=== PATIENT | female | born 1955 | race Caucasian/White ===

== ENCOUNTER 2017-03-31 10:14 | Inpatient (IN) | payer OTHER ==
[~2017-03-31] VITALS: Ht 157.5 cm; Wt 68.0 kg
[2017-03-31 10:24] VITALS: BP 125/68
[2017-03-31] MEDS ORDERED: Norco 5mg/325mg tab PO ONE (10:30)
--- NOTE | 2017-03-31 11:11 | Diagnostic Imaging Report ---
Indication: pain Findings: Single AP view of the pelvis was performed. No acute fracture is identified. Bone mineralization is within normal limits. Bilateral hips and sacroiliac joints appear symmetric.There is no malalignment. Soft tissues are unremarkable.
[2017-03-31] MEDS ORDERED: Morphine Sulfate 2mg/ml Inj IVP ONE (12:45)
[2017-03-31 13:00] VITALS: BP 135/63
[2017-03-31 13:16] LABS: MEAN CORPUSCULAR HEMOGLOBIN 26.2 PG (27.0-31.0); MEAN CORPUSCULAR HGB CONC 32.1 G/DL (32.0-36.0); MEAN CORPUSCULAR VOLUME 82 FL (80-99); MEAN PLATELET VOLUME 7.1 FL (6.5-10.1); PLATELET COUNT 231 K/UL (150-450); RED BLOOD COUNT 4.28 M/UL (4.20-5.40); RED CELL DISTRIBUTION WIDTH 13.8 % (11.6-14.8); WHITE BLOOD COUNT 11.3 K/UL (4.8-10.8)
[2017-03-31 13:18] LABS: APPEARANCE,URINE CLEAR; KETONES,URINE NEGATIVE (NEGATIVE); LEUKOCYTE ESTERASE ,URINE NEGATIVE (NEGATIVE); NITRITE,URINE NEGATIVE (NEGATIVE); PH,URINE 8 (4.5-8.0); PROTEIN,URINE NEGATIVE (NEGATIVE); UROBILINOGEN,URINE NORMAL MG/DL (0.0-1.0)
[2017-03-31 13:29] LABS: PROTHROMBIN TIME 10.2 SEC (9.30-11.50)
[2017-03-31 13:38] LABS: ALANINE AMINOTRANSFERASE 24 U/L (3-33); ALBUMIN/GLOBULIN RATIO 1.3 (1.0-2.7); ANION GAP 14 (5-15); ASPARTATE AMINO TRANSFERASE 27 U/L (5-40); CALCIUM 8.9 mg/dL (8.6-10.2); CARBON DIOXIDE 27 mEQ/L (20-30); CHLORIDE 99 mEQ/L (98-107); CREATININE 0.7 mg/dL (0.5-0.9); GLOMERULAR FILTRATION RATE > 60 mL/min (>60); HEMOLYSIS 3; POTASSIUM 3.9 mEQ/L (3.4-4.9); SODIUM 140 mEQ/L (135-145); TOTAL PROTEIN 6.7 g/dL (6.6-8.7)
[2017-03-31 13:39] LABS: TROPONIN I < 0.30 ng/mL (<=0.30)
[2017-03-31 13:44] LABS: BAND NEUTROPHILS % (MANUAL) 2 % (0-8); BASOPHILS % (MANUAL) 0 % (0-2); EOSINOPHILS % (MANUAL) 0 % (0-3); HYPOCHROMASIA 1+; LYMPHOCYTES % (MANUAL) 2 % (20-45); NEUTROPHILS % (MANUAL) 92 % (45-75); PLATELET ESTIMATE ADEQUATE; PLATELET MORPHOLOGY NORMAL; TOTAL CELLS COUNTED 100
[2017-03-31] MEDS ORDERED: Mylanta II UD 30ml ORAL PRN (14:30)
[2017-03-31] MEDS ORDERED: Morphine Sulfate 2mg/ml Inj IVP PRN (14:30)
[2017-03-31] MEDS ORDERED: LORazepam Inj 2mg/ml 1ml IV PRN (14:30)
--- NOTE | 2017-03-31 14:38 | Emergency Room Report ---
History of Present Illness General Chief Complaint: Multiple Trauma/Fall Source: Patient Present Illness HPI Patient fell off a chair while at work putting away cleaning supplies. She fell onto her right side and also hit her head. There is no loss of consciousness. The pain was so severe that she is unable to ambulate. The pain is medial upper thigh area. She does not take any medication before coming to the hospital. Brought by EMS. Pain is medial thigh R radiating from pelvis to leg/knee. Pain 6/10, constant, but worsened when tries to stand. No saddle numbness, incontinence, chest pain, NVD, dysuria, fevers. No bleeding disorders or oncologic problems. Tried to ambulate at scene and unable. H/O HTN. Allergies: Coded Allergies: No Known Allergies (Unverified , 03/31/17) Patient History Past Medical History: see triage record Social History: Denies: smoking Social History Narrative works at [employer] Reviewed Nursing Documentation: PMH: Agreed, PSxH: Agreed Nursing Documentation-PMH Past Medical History: No History, Except For Hx Hypertension: Yes Review of Systems All Other Systems: negative except mentioned in HPI Physical Exam Vital Signs Date Time Temp Pulse Resp B/P Pulse Ox O2 Delivery O2 Flow Rate FiO2 03/31/17 10:09 97.3 80 16 125/75 100 Room Air Sp02 EP Interpretation: reviewed, normal General Appearance: well appearing, no apparent distress, GCS 15 Head: normocephalic, other - tender occiput Eyes: bilateral eye EOMI, bilateral eye PERRL, bilateral eye normal inspection ENT: moist mucus membranes Neck: full range of motion, supple, no bony tend Respiratory: chest non-tender, lungs clear, normal breath sounds Cardiovascular #1: regular rate, rhythm Cardiovascular #2: 2+ radial (R) Gastrointestinal: normal inspection, normal bowel sounds, non tender, no mass, non-distended Musculoskeletal: back normal, digits/nails normal, pelvis stable, tender - medial thigh and ischial area, knee ligaments stable, ankle not tender or swollen Neurologic: alert, oriented x3, 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 as tested, motor strength/tone normal, DTRs symmetric, sensory intact, cerebellar normal, speech normal Psychiatric: mood/affect normal Skin: normal inspection, warm/dry Medical Decision Making Diagnostic Impression: Primary Impression: Fall Qualified Codes: W19.XXXA - Unspecified fall, initial encounter Additional Impressions: Unable to ambulate Head injury Qualified Codes: S09.90XA - Unspecified injury of head, initial encounter Strain of right hip and thigh Qualified Codes: S76.011A - Strain of muscle, fascia and tendon of right hip, initial encounter; S76.911A - Strain of unspecified muscles, fascia and tendons at thigh level, right thigh, initial encounter ER Course Patient fell from chair and has head and R sided leg pain. Ddx: concussion, fracture, contusions, strain. Xrays and analgesia indicated. Xrays without fractures. Improved but still with pain. CT normal. Patient is unable to ambulate due to severe pain in her upper thigh. We'll admit her to the hospital for observation. Need labs to exclude other co- morbidities. Parenteral analgesia with some improvement. Labs unremarkable. Admit med Dr. [place]. Laboratory Tests Test 03/31/17 13:00 White Blood Count 11.3 K/UL (4.8-10.8) H Red Blood Count 4.28 M/UL (4.20-5.40) Hemoglobin 11.2 G/DL (12.0-16.0) L Hematocrit 34.9 % (37.0-47.0) L Mean Corpuscular Volume 82 FL (80-99) Mean Corpuscular Hemoglobin 26.2 PG (27.0-31.0) L Mean Corpuscular Hemoglobin Concent 32.1 G/DL (32.0-36.0) Red Cell Distribution Width 13.8 % (11.6-14.8) Platelet Count 231 K/UL (150-450) Mean Platelet Volume 7.1 FL (6.5-10.1) Neutrophils (%) (Auto) % (45.0-75.0) Lymphocytes (%) (Auto) % (20.0-45.0) Monocytes (%) (Auto) % (1.0-10.0) Eosinophils (%) (Auto) % (0.0-3.0) Basophils (%) (Auto) % (0.0-2.0) Differential Total Cells Counted 100 Neutrophils % (Manual) 92 % (45-75) H Lymphocytes % (Manual) 2 % (20-45) L Monocytes % (Manual) 4 % (1-10) Eosinophils % (Manual) 0 % (0-3) Basophils % (Manual) 0 % (0-2) Band Neutrophils 2 % (0-8) Platelet Estimate Adequate Platelet Morphology Normal Hypochromasia 1+ Prothrombin Time 10.2 SEC (9.30-11.50) Prothrombin Time INR 1.0 (0.9-1.1) PTT 22 SEC (23-33) L Urine Color Pale yellow Urine Appearance Clear Urine pH 8 (4.5-8.0) Urine Specific [place] 1.010 (1.005-1.035) Urine Protein Negative (NEGATIVE) Urine Glucose (UA) Negative (NEGATIVE) Urine Ketones Negative (NEGATIVE) Urine Occult Blood Negative (NEGATIVE) Urine Nitrite Negative (NEGATIVE) Urine Bilirubin Negative (NEGATIVE) Urine Urobilinogen Normal MG/DL (0.0-1.0) Urine Leukocyte Esterase Negative (NEGATIVE) Sodium Level 140 mEQ/L (135-145) Potassium Level 3.9 mEQ/L (3.4-4.9) Chloride Level 99 mEQ/L (98-107) Carbon Dioxide Level 27 mEQ/L (20-30) Anion Gap 14 (5-15) Blood Urea Nitrogen 15 mg/dL (7-23) Creatinine 0.7 mg/dL (0.5-0.9) Estimate Glomerular Filtration Rate > 60 mL/min (>60) Glucose Level 110 mg/dL (74-106) H Calcium Level 8.9 mg/dL (8.6-10.2) Total Bilirubin < 0.2 mg/dL (0.0-1.2) Aspartate Amino Transferase (AST) 27 U/L (5-40) Alanine Aminotransferase (ALT) 24 U/L (3-33) Alkaline Phosphatase 81 U/L (35-104) Total Creatine Kinase 427 U/L (26-140) H Troponin I < 0.30 ng/mL (<=0.30) Pro-B-Type Natriuretic Peptide 87 pg/mL (0-125) Total Protein 6.7 g/dL (6.6-8.7) Albumin 3.8 g/dL (3.5-5.2) Globulin 2.9 g/dL Albumin/Globulin Ratio 1.3 (1.0-2.7) EKG Diagnostic Results Rate: normal Rhythm: NSR ST Segments: no acute changes Rhythm Strip Diag. Results EP Interpretation: yes Rhythm: NSR, no PVC's, no ectopy Chest X-Ray Diagnostic Results EP Interpretation: Yes Findings: no consolidation, no effusion, no pneumothorax, no acute cardiopulmonary disease Number of Views: 1 Other X-Ray Diagnostic Results Other X-Ray Diagnostic Results #1: X-Ray Ordered: pelvis EP Interpretation: Yes Findings: no fractures, no dislocation, no soft tissue swelling Number of Views: 1 Other X-Ray Diagnostic Results #2: X-Ray Ordered: R hip EP Interpretation: Yes Findings: no fractures, no dislocation, no soft tissue swelling Number of Views: 2 Other X-Ray Diagnostic Results #3: X-Ray Ordered: R knee EP Interpretation: Yes Findings: no fractures, no dislocation, no soft tissue swelling, other - djd Number of Views: 3 CT/MRI/US Diagnostic Results CT/MRI/US Diagnostic Results : Imaging Test Ordered: head Impression no bleed or fx Last Vital Signs Date Time Temp Pulse Resp B/P Pulse Ox O2 Delivery O2 Flow Rate FiO2 03/31/17 19:49 98.1 63 18 107/98 98 Room Air Status: improved Disposition: HOME, SELF-CARE Condition: Improved Referrals: NON PHYSICIAN (PCP) Hany Grant M.D. March 31, 2017 14:38
[2017-03-31] MEDS ORDERED: BYSTOLIC10 MG ORAL (14:56)
[2017-03-31 16:08] VITALS: BP 102/61
[2017-03-31 19:49] VITALS: BP 107/98
[2017-03-31] MEDS: Heparin 5000 units/ml inj SUBQ SCH (20:32)
[2017-03-31] MEDS ORDERED: Zolpidem 5mg tab ORAL PRN (21:00)
[2017-03-31] MEDS ORDERED: Miralax 17gm pkt ORAL PRN (21:00)
[2017-03-31] MEDS ORDERED: AMLODIPINE BESY10 MG ORAL (21:46)
--- NOTE | 2017-03-31 22:29 | History and Physical ---
History of Present Illness General Reason for Hospitalization: Multiple Trauma/Fall Present Illness Allergies: Coded Allergies: No Known Allergies (Unverified , 03/31/17) Medication History Scheduled Amlodipine Besylate* (Amlodipine Besylate*), 10 MG ORAL DAILY, (Reported) Nebivolol Hcl (Bystolic*), 10 MG ORAL DAILY, (Reported) Patient History Healthcare decision maker Resuscitation status Full Code Advanced Directive on File Physical Exam Last 24 Hour Vital Signs Date Time Temp Pulse Resp B/P Pulse Ox O2 Delivery O2 Flow Rate FiO2 03/31/17 20:50 98.1 03/31/17 19:49 98.1 63 18 107/98 98 Room Air 03/31/17 16:08 97.7 71 16 102/61 98 Room Air 03/31/17 15:15 72 18 104/69 98 Room Air 03/31/17 13:00 98.2 76 15 135/63 99 Room Air 03/31/17 11:30 98.0 03/31/17 11:30 98.0 03/31/17 10:24 98.0 78 17 125/68 98 Room Air 03/31/17 10:09 97.3 80 16 125/75 100 Room Air Laboratory Tests Test 03/31/17 13:00 White Blood Count 11.3 K/UL (4.8-10.8) H Red Blood Count 4.28 M/UL (4.20-5.40) Hemoglobin 11.2 G/DL (12.0-16.0) L Hematocrit 34.9 % (37.0-47.0) L Mean Corpuscular Volume 82 FL (80-99) Mean Corpuscular Hemoglobin 26.2 PG (27.0-31.0) L Mean Corpuscular Hemoglobin Concent 32.1 G/DL (32.0-36.0) Red Cell Distribution Width 13.8 % (11.6-14.8) Platelet Count 231 K/UL (150-450) Mean Platelet Volume 7.1 FL (6.5-10.1) Neutrophils (%) (Auto) % (45.0-75.0) Lymphocytes (%) (Auto) % (20.0-45.0) Monocytes (%) (Auto) % (1.0-10.0) Eosinophils (%) (Auto) % (0.0-3.0) Basophils (%) (Auto) % (0.0-2.0) Differential Total Cells Counted 100 Neutrophils % (Manual) 92 % (45-75) H Lymphocytes % (Manual) 2 % (20-45) L Monocytes % (Manual) 4 % (1-10) Eosinophils % (Manual) 0 % (0-3) Basophils % (Manual) 0 % (0-2) Band Neutrophils 2 % (0-8) Platelet Estimate Adequate Platelet Morphology Normal Hypochromasia 1+ Prothrombin Time 10.2 SEC (9.30-11.50) Prothromb Time International Ratio 1.0 (0.9-1.1) Activated Partial Thromboplast Time 22 SEC (23-33) L Urine Color Pale yellow Urine Appearance Clear Urine pH 8 (4.5-8.0) Urine Specific [place] 1.010 (1.005-1.035) Urine Protein Negative (NEGATIVE) Urine Glucose (UA) Negative (NEGATIVE) Urine Ketones Negative (NEGATIVE) Urine Occult Blood Negative (NEGATIVE) Urine Nitrite Negative (NEGATIVE) Urine Bilirubin Negative (NEGATIVE) Urine Urobilinogen Normal MG/DL (0.0-1.0) Urine Leukocyte Esterase Negative (NEGATIVE) Sodium Level 140 mEQ/L (135-145) Potassium Level 3.9 mEQ/L (3.4-4.9) Chloride Level 99 mEQ/L (98-107) Carbon Dioxide Level 27 mEQ/L (20-30) Anion Gap 14 (5-15) Blood Urea Nitrogen 15 mg/dL (7-23) Creatinine 0.7 mg/dL (0.5-0.9) Estimat Glomerular Filtration Rate > 60 mL/min (>60) Glucose Level 110 mg/dL (74-106) H Calcium Level 8.9 mg/dL (8.6-10.2) Total Bilirubin < 0.2 mg/dL (0.0-1.2) Aspartate Amino Transf (AST/SGOT) 27 U/L (5-40) Alanine Aminotransferase (ALT/SGPT) 24 U/L (3-33) Alkaline Phosphatase 81 U/L (35-104) Total Creatine Kinase 427 U/L (26-140) H Troponin I < 0.30 ng/mL (<=0.30) Pro-B-Type Natriuretic Peptide 87 pg/mL (0-125) Total Protein 6.7 g/dL (6.6-8.7) Albumin 3.8 g/dL (3.5-5.2) Globulin 2.9 g/dL Albumin/Globulin Ratio 1.3 (1.0-2.7) Height (Feet): 5 Height (Inches): 2.00 Weight (Pounds): 150 Medications Current Medications Medications (Trade) Dose Ordered Sig/Christina Route PRN Reason Start Time Stop Time Status Last Admin Dose Admin Acetaminophen (Tylenol) 650 mg Q4H PRN ORAL T>100.5 03/31/17 14:30 04/30/17 14:29 03/31/17 19:51 Al Hydroxide/Mg Hydroxide (Mylanta II) 30 ml Q6H PRN ORAL dyspepsia 03/31/17 14:30 04/30/17 14:29 Dextrose (Dextrose 50%) STAT PRN IV Hypoglycemia 03/31/17 14:30 04/30/17 14:29 Heparin Sodium (Porcine) (Heparin 5000 units/ml) 5,000 units EVERY 12 HOURS SUBQ 03/31/17 21:00 04/30/17 20:59 03/31/17 20:32 Lorazepam (Ativan 2mg/ml 1ml) 0.5 mg Q4H PRN IV For Anxiety 03/31/17 14:30 04/07/17 14:29 Morphine Sulfate (Morphine Sulfate) 1 mg Q4H PRN IVP PAIN 4-10 03/31/17 14:30 04/07/17 14:29 Ondansetron HCl (Zofran) 4 mg Q6H PRN IVP Nausea & Vomiting 03/31/17 14:30 04/30/17 14:29 Polyethylene Glycol (Miralax) 17 gm HSPRN PRN ORAL Constipation 03/31/17 21:00 04/30/17 20:59 Zolpidem Tartrate (Ambien) 5 mg HSPRN PRN ORAL Insomnia 03/31/17 21:00 04/30/17 20:59 ELIZABETH PRITCHARD March 31, 2017 22:29
[2017-03-31 23:46] VITALS: BP 114/61
[2017-04-01 04:00] VITALS: BP 104/69
[2017-04-01 06:49] LABS: BASOPHILS % (AUTO) 0.6 % (0.0-2.0); EOSINOPHILS % (AUTO) 0.6 % (0.0-3.0); LYMPHOCYTES % (AUTO) 19.4 % (20.0-45.0); MEAN CORPUSCULAR HEMOGLOBIN 26.2 PG (27.0-31.0); MEAN CORPUSCULAR HGB CONC 31.9 G/DL (32.0-36.0); MEAN CORPUSCULAR VOLUME 82 FL (80-99); MEAN PLATELET VOLUME 7.6 FL (6.5-10.1); MONOCYTES % (AUTO) 6.9 % (1.0-10.0); NEUTROPHILS % (AUTO) 72.6 % (45.0-75.0); PLATELET COUNT 207 K/UL (150-450); RED BLOOD COUNT 3.96 M/UL (4.20-5.40); RED CELL DISTRIBUTION WIDTH 14.1 % (11.6-14.8); WHITE BLOOD COUNT 6.5 K/UL (4.8-10.8)
[2017-04-01 07:20] LABS: ALANINE AMINOTRANSFERASE 22 U/L (3-33); ALBUMIN/GLOBULIN RATIO 1.3 (1.0-2.7); ANION GAP 11 (5-15); ASPARTATE AMINO TRANSFERASE 24 U/L (5-40); CALCIUM 9.3 mg/dL (8.6-10.2); CARBON DIOXIDE 27 mEQ/L (20-30); CHLORIDE 104 mEQ/L (98-107); CHOLESTEROL 182 mg/dL (< 200); CHOLESTEROL/HDL RATIO 3.7 (3.3-4.4); CREATININE 0.7 mg/dL (0.5-0.9); GLOMERULAR FILTRATION RATE > 60 mL/min (>60); HEMOLYSIS 4; LDL CHOLESTEROL (CALC.) 110 mg/dL (60-99); POTASSIUM 3.9 mEQ/L (3.4-4.9); SODIUM 142 mEQ/L (135-145); TOTAL PROTEIN 6.2 g/dL (6.6-8.7)
[2017-04-01 08:24] VITALS: BP 129/72
--- NOTE | 2017-04-01 09:19 | Diagnostic Imaging Report ---
Indication: Pain 3 views of the right knee were obtained. Findings: No acute fracture, malalignment, or joint effusion are identified. Joint space is relatively well-maintained. Bone mineralization is within normal limits for age. Impression: Negative exam
--- NOTE | 2017-04-01 09:19 | Diagnostic Imaging Report ---
Indication: Headache. Head trauma Technique: Contiguous 5 mm thick transaxial imaging of the head obtained in a Siemens Sensation [address] scanner. Soft tissue and bone windows generated. Total Dose length Product (DLP): [address] Dose Index Volume (CTDIvol): 70.38 mGy Comparison: none Findings: The size and configuration of the cortical sulci, basal cisterns, and ventricles are within normal limits for age. There is no mass effect, midline shift, or edema identified. There is no evidence of acute hemorrhage or abnormal intra-axial or extra-axial fluid collections. The bones and soft tissues are unremarkable. Impression: No mass effect, edema or acute bleed. The CT scanner at [facility] is accredited by the [employer] and the scans are performed using dose optimization techniques as appropriate to a performed exam including Automatic Exposure control.
--- NOTE | 2017-04-01 09:19 | Diagnostic Imaging Report ---
Indications: hip pain Findings: Two views of the right hip were obtained. No acute fracture is demonstrated. Alignment of the hip is within normal limits. Soft tissues are unremarkable. Impression: Negative examination of the hip.
[2017-04-01] MEDS: Heparin 5000 units/ml inj SUBQ SCH ×2 (09:39→20:43)
--- NOTE | 2017-04-01 10:06 | Diagnostic Imaging Report ---
Indication: Chest pain Technique: One view of the chest Comparison: none Findings: Lungs and pleural spaces are clear. Heart size is normal Impression: No acute process
[2017-04-01 12:28] VITALS: BP 125/72
--- NOTE | 2017-04-01 12:34 | Diagnostic Imaging Report ---
APPROVED REPORT CPT Code: 45300 Present Symptoms Lower Extremity Pain: Bilateral BILATERAL: Imaging reveals a patent deep venous system bilaterally. There is no evidence of thrombus within the femoral, popliteal or tibial segments. The greater saphenous veins are also within normal limits. Doppler indicates normal spontaneous flow within these segments.
--- NOTE | 2017-04-01 14:18 | Neurology Progress Note ---
Objective Physical Exam Last Vital Signs Date Time Temp Pulse Resp B/P Pulse Ox O2 Delivery O2 Flow Rate FiO2 04/01/17 12:28 98.4 68 16 125/72 96 04/01/17 08:24 Room Air Laboratory Tests Test 04/01/17 04:35 White Blood Count 6.5 K/UL (4.8-10.8) Red Blood Count 3.96 M/UL (4.20-5.40) L Hemoglobin 10.4 G/DL (12.0-16.0) L Hematocrit 32.5 % (37.0-47.0) L Mean Corpuscular Volume 82 FL (80-99) Mean Corpuscular Hemoglobin 26.2 PG (27.0-31.0) L Mean Corpuscular Hemoglobin Concent 31.9 G/DL (32.0-36.0) L Red Cell Distribution Width 14.1 % (11.6-14.8) Platelet Count 207 K/UL (150-450) Mean Platelet Volume 7.6 FL (6.5-10.1) Neutrophils (%) (Auto) 72.6 % (45.0-75.0) Lymphocytes (%) (Auto) 19.4 % (20.0-45.0) L Monocytes (%) (Auto) 6.9 % (1.0-10.0) Eosinophils (%) (Auto) 0.6 % (0.0-3.0) Basophils (%) (Auto) 0.6 % (0.0-2.0) Sodium Level 142 mEQ/L (135-145) Potassium Level 3.9 mEQ/L (3.4-4.9) Chloride Level 104 mEQ/L (98-107) Carbon Dioxide Level 27 mEQ/L (20-30) Anion Gap 11 (5-15) Blood Urea Nitrogen 14 mg/dL (7-23) Creatinine 0.7 mg/dL (0.5-0.9) Estimat Glomerular Filtration Rate > 60 mL/min (>60) Glucose Level 110 mg/dL (74-106) H Calcium Level 9.3 mg/dL (8.6-10.2) Total Bilirubin 0.3 mg/dL (0.0-1.2) Aspartate Amino Transf (AST/SGOT) 24 U/L (5-40) Alanine Aminotransferase (ALT/SGPT) 22 U/L (3-33) Alkaline Phosphatase 70 U/L (35-104) Total Protein 6.2 g/dL (6.6-8.7) L Albumin 3.6 g/dL (3.5-5.2) Globulin 2.6 g/dL Albumin/Globulin Ratio 1.3 (1.0-2.7) Triglycerides Level 116 mg/dL (< 150) Cholesterol Level 182 mg/dL (< 200) LDL Cholesterol 110 mg/dL (60-99) H HDL Cholesterol 49 mg/dL (> 60) Cholesterol/HDL Ratio 3.7 (3.3-4.4) Thyroid Stimulating Hormone (TSH) 3.780 uIU/mL (0.300-4.500) Impression/Recommendations Recommendations #[id number] SAMANTHA OLIVIER April 01, 2017 14:18
[2017-04-01] MEDS ORDERED: traMADol 50mg tab ORAL PRN (14:30)
--- NOTE | 2017-04-01 14:39 | Pulmonology Progress Note ---
Assessment/Plan Problems: (1) Intractable back pain (2) Fall (3) Unable to ambulate Assessment/Plan f/u with neuro recommendations pain management Subjective ROS Limited/Unobtainable: No Interval Events: still c/o pain Allergies: Coded Allergies: No Known Allergies (Unverified , 03/31/17) Objective Last 24 Hour Vital Signs Date Time Temp Pulse Resp B/P Pulse Ox O2 Delivery O2 Flow Rate FiO2 04/01/17 12:28 98.4 68 16 125/72 96 04/01/17 08:24 98.4 82 20 129/72 98 Room Air 04/01/17 04:00 98.1 74 19 104/69 96 Room Air 03/31/17 23:46 98.2 69 20 114/61 97 Room Air 03/31/17 20:50 98.1 03/31/17 19:49 98.1 63 18 107/98 98 Room Air 03/31/17 16:08 97.7 71 16 102/61 98 Room Air 03/31/17 15:15 72 18 104/69 98 Room Air Intake and Output 03/31/17 04/01/17 19:00 07:00 Intake Total 720 ml Output Total 1100 ml 750 ml Balance -380 ml -750 ml Intake Oral 720 ml Output Urine Total 1100 ml 750 ml # Bowel Movements 1 General Appearance: WD/WN HEENT: normocephalic, atraumatic Respiratory/Chest: chest wall non-tender, lungs clear Cardiovascular: normal peripheral pulses, normal rate Abdomen: normal bowel sounds, soft, non tender Genitourinary: normal external genitalia 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 normal, no motor/sensory deficits Laboratory Tests 04/01/17 04:35: White Blood Count 6.5, Red Blood Count 3.96L, Hemoglobin 10.4L, Hematocrit 32.5L , Mean Corpuscular Volume 82, Mean Corpuscular Hemoglobin 26.2L, Mean Corpuscular Hemoglobin Concent 31.9L, Red Cell Distribution Width 14.1, Platelet Count 207, Mean Platelet Volume 7.6, Neutrophils (%) (Auto) 72.6, Lymphocytes (%) (Auto) 19.4L, Monocytes (%) (Auto) 6.9, Eosinophils (%) (Auto) 0.6, Basophils (%) (Auto) 0.6, Sodium Level 142, Potassium Level 3.9, Chloride Level 104, Carbon Dioxide Level 27, Anion Gap 11, Blood Urea Nitrogen 14, Creatinine 0.7, Estimat Glomerular Filtration Rate > 60, Glucose Level 110H, Calcium Level 9.3, Total Bilirubin 0.3, Aspartate Amino Transf (AST/SGOT) 24, Alanine Aminotransferase (ALT/SGPT) 22, Alkaline Phosphatase 70, Total Protein 6.2L, Albumin 3.6, Globulin 2.6, Albumin/Globulin Ratio 1.3, Triglycerides Level 116, Cholesterol Level 182, LDL Cholesterol 110H, HDL Cholesterol 49, Cholesterol/HDL Ratio 3.7, Thyroid Stimulating Hormone (TSH) 3.780 Current Medications Medications (Trade) Dose Ordered Sig/Christina Route PRN Reason Start Time Stop Time Status Last Admin Dose Admin Acetaminophen (Tylenol) 650 mg Q4H PRN ORAL T>100.5 03/31/17 14:30 04/30/17 14:29 03/31/17 19:51 Al Hydroxide/Mg Hydroxide (Mylanta II) 30 ml Q6H PRN ORAL dyspepsia 03/31/17 14:30 04/30/17 14:29 Cyclobenzaprine HCl (Flexeril) 10 mg THREE TIMES A DAY ORAL 04/01/17 15:00 05/01/17 14:59 Dextrose (Dextrose 50%) STAT PRN IV Hypoglycemia 03/31/17 14:30 04/30/17 14:29 Heparin Sodium (Porcine) (Heparin 5000 units/ml) 5,000 units EVERY 12 HOURS SUBQ 03/31/17 21:00 04/30/17 20:59 04/01/17 09:39 Ibuprofen (Motrin) 800 mg TIDPRN PRN ORAL Mild Pain (Pain Scale 1-3) 04/01/17 14:15 05/01/17 14:14 Lorazepam (Ativan 2mg/ml 1ml) 0.5 mg Q4H PRN IV For Anxiety 03/31/17 14:30 04/07/17 14:29 Morphine Sulfate (Morphine Sulfate) 1 mg Q4H PRN IVP PAIN 4-10 03/31/17 14:30 04/07/17 14:29 Ondansetron HCl (Zofran) 4 mg Q6H PRN IVP Nausea & Vomiting 03/31/17 14:30 04/30/17 14:29 Polyethylene Glycol (Miralax) 17 gm HSPRN PRN ORAL Constipation 03/31/17 21:00 04/30/17 20:59 Tramadol HCl (Ultram) 50 mg Q6H PRN ORAL Severe Breakthru Pain (>7) 04/01/17 14:30 04/08/17 14:29 Zolpidem Tartrate (Ambien) 5 mg HSPRN PRN ORAL Insomnia 03/31/17 21:00 04/30/17 20:59 ELIZABETH PRITCHARD April 01, 2017 14:39
[2017-04-01 15:15] VITALS: BP 112/70
[2017-04-01] MEDS: Cyclobenzaprine 10mg Tab ORAL SCH (15:35)
--- NOTE | 2017-04-01 17:08 | Diagnostic Imaging Report ---
Indications: Back pain Technique: Spiral acquisitions obtained through the lumbar spine. Multiplanar reconstructions were generated. No IV contrast utilized. Total dose length product or 37 mGycm. CTDIvol(s) 16 mGy. Dose reduction achieved using automated exposure control Comparison: None Findings: Bony alignment is normal except for mild posterior offset of L3 on L4. Vertebral body heights are preserved. There are No acute fractures. No dislocations. At L2-3, there is generalized circumferential annular bulge, resulting in mild narrowing of the spinal canal, mild narrowing of the left neural foramen, moderate narrowing of the right neural foramen. There is degenerative disc narrowing, mild, and vacuum disc formation. At L3-4, there is generalized circumferential annular bulge, which in combination with ligamentum flavum hypertrophy results in minimal narrowing of the spinal canal. There is mild narrowing of the bilateral neural foramina due to the bulging disc as well as facet hypertrophy and slight posterior offset of L3 on L4. There is very mild degenerative disc narrowing but considerable degenerative vacuum formation. At L4-5, there is mild circumferential annular bulge, resulting in minimal narrowing of the spinal canal. This also results in mild compromise of the bilateral neural foramina. Disc space is preserved. At L5-S1, there is degenerative disc narrowing, mild, with vacuum formation. No significant disc bulge or protrusion, spinal stenosis, or neural foraminal narrowing. At the remaining disc levels, no significant disc bulge or protrusion, spinal stenosis, or neural foraminal stenosis is evident. The included extraspinal soft tissues are unremarkable. Impression: No acute bony trauma Mild degenerative changes, as detailed on a level by level basis above The CT scanner at [facility] is accredited by the [employer] and the scans are performed using protocols designed to limit radiation exposure to as low as reasonably achievable to attain images of sufficient resolution adequate for diagnostic evaluation.
[2017-04-01 20:00] VITALS: BP 110/71
--- NOTE | 2017-04-01 20:30 | Consultation ---
DATE OF CONSULTATION: 04/01/2017 NEUROLOGICAL CONSULTATION CONSULTING PHYSICIAN: Omari Delacruz M.D. REQUESTING PHYSICIAN: López Spain M.D. HISTORY OF PRESENT ILLNESS: This is a 61-year-old lady seen in neurological consultation to evaluate the new onset of trauma with inability to ambulate. 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 She felt acute pain at the injury site and became sweaty. She was unable to get up, someone helped her to get up and placed on the chair. She was unable to ambulate. Paramedics were called to the scene and she was brought to emergency room. Vital signs on admission were stable. She was afebrile. She denies any saddle numbness and urinary incontinence. No chest pain. No nausea or vomiting. No dysuria. There is no fevers. Her initial diagnostic studies included laboratory work revealing a CBC study with WBC 11.3, hemoglobin 11.2, and hematocrit 34.9. Chemistry panel, blood sugar 110 and CPK of 127, otherwise normal. TSH and lipid panel are unremarkable. Coagulation was normal. Imaging studies including venous duplex study of both lower extremities, CAT scan of the brain, x-ray of the hip and pelvis, and x-ray of the right knee were negative. No fracture or dislocation noted. CT scan of the brain, no pathology noted. No midline shift. The patient indicates that there were no substantial changes from yesterday. Now, she is complaining of slight tenderness in her left occipital region and no pain in her both lower extremities unless she is moving right leg or attempting to stand up. With movement, she develops a severe pain pointing to inner thigh, groin region, but also anterior thigh, and just behind the right knee. Pain in her opinion goes down to the right foot. When trying to get up, pain radiate to the right lower back region although most of her pain and discomfort is in the aspect of right thigh. There is no numbness or tingling. At this time, there is no headache, no dizziness, and no visual or hearing abnormalities. PAST MEDICAL HISTORY: The patient has a history of hypertension. Her treatment at home included amlodipine and Bystolic. She has a history of fungal rash in her groin region that started about months ago. She was prescribed some fungal ointment, which reduces the rash. She denies any other major medical problems. FAMILY HISTORY: Noncontributory. 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 PHYSICAL EXAMINATION: GENERAL: A well-developed and well-nourished lady, in no acute distress, lying comfortably in bed. VITAL SIGNS: Now stable. Blood pressure 125/72 and temperature 98.4 degrees. HEENT: Head normocephalic. There is a palpable tenderness in the left occipital region. No deformities. No otorrhea. No rhinorrhea. EXTREMITIES: Cervical spine and upper extremities within normal limits. There is minor tenderness on palpation in the lumbar region. No deformities. There is acute tenderness when palpated in the aspect of her right thigh. Tenderness in the anterior thigh in the area behind right knee. There is some tenderness on palpation in the right foot region. Peripheral pulses 1+ symmetric. There is no discoloration. No evidence of trauma. SKIN: Revealed presence of this confluent rash in her groin region and upper thigh region. MENTAL STATUS: Alert and oriented x3 with no evidence of aphasia or apraxia. Cognition is normal. CRANIAL NERVE II: Pupils both responding to light and accommodation. Extraocular movement intact. No nystagmus. CRANIAL NERVE V: Normal corneal responses. CRANIAL NERVE VII: No facial asymmetry. CRANIAL NERVE VIII: Normal hearing. CRANIAL NERVE IX AND XII: Within normal limits. MOTOR EXAMINATION: Revealed a normal muscle tone and strength in both upper extremities, but reduced pain due to pain in the right lower extremities including right foot dorsiflexion. Normal right foot extension. Straight leg raising test positive 70-degree on the right. Deep tendon reflexes brisk 2+ bilaterally ankle jerks. Plantar responses flexor. SENSORY EXAMINATION: Normal to pinprick and light touch in both lower extremities. IMPRESSION: 1. Status post blunt head trauma. 2. Status post mechanical fall with musculoligamentous sprain in right lower extremity predominantly anterior medial hip region. 3. Doubt presence of discogenic radiculopathy. 4. Hypertension. 5. Skin rash. RECOMMENDATION: 1. CT scan of the lumbosacral spine. 2. Motrin 800 mg b.i.d. daily with meals. 3. Flexeril 10 mg b.i.d. 4. Avoid any strenuous physical exertion. 5. When stable, discharge home with followup at [facility]. Thank you for allowing me to see this interesting patient in neurological consultation. Omari Caty Delacruz DR: STONE JOB#: [id number] CC:
[2017-04-02] VITALS: BP 127/75
[2017-04-02 04:00] VITALS: BP 112/64
[2017-04-02 05:05] VITALS: BP 112/64
[2017-04-02 08:00] VITALS: BP 117/77
[2017-04-02] MEDS: Heparin 5000 units/ml inj SUBQ SCH (09:18)
[2017-04-02] MEDS: Cyclobenzaprine 10mg Tab ORAL SCH ×2 (09:22→12:27)
[2017-04-02 12:00] VITALS: BP 137/77
--- NOTE | 2017-04-02 15:04 | Pulmonology Progress Note ---
Assessment/Plan Problems: (1) Intractable back pain (2) Fall (3) Unable to ambulate Assessment/Plan f/u with neuro recommendations pain management dc with outpatinet f/u Subjective ROS Limited/Unobtainable: No Interval Events: walking around Allergies: Coded Allergies: No Known Allergies (Unverified , 03/31/17) Objective Last 24 Hour Vital Signs Date Time Temp Pulse Resp B/P Pulse Ox O2 Delivery O2 Flow Rate FiO2 04/02/17 12:00 98.1 81 18 137/77 97 Room Air 04/02/17 08:00 98.1 77 18 117/77 97 Room Air 04/02/17 05:05 98.1 74 18 112/64 96 Room Air 04/02/17 04:00 98.1 74 18 112/64 96 Room Air 04/02/17 00:00 98.2 74 18 127/75 96 Room Air 04/01/17 20:00 98.4 80 18 110/71 95 Room Air 04/01/17 18:04 99.0 04/01/17 15:15 99.7 74 16 112/70 95 Room Air Intake and Output 04/01/17 04/02/17 19:00 07:00 Intake Total 1500 ml Output Total 1050 ml 800 ml Balance 450 ml -800 ml Intake Oral 1500 ml Output Urine Total 1050 ml 800 ml General Appearance: WD/WN Respiratory/Chest: chest wall non-tender, normal breath sounds Abdomen: normal bowel sounds, soft, non tender Genitourinary: normal external genitalia Extremities: no clubbing 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, no motor/sensory deficits Current Medications Medications (Trade) Dose Ordered Sig/Christina Route PRN Reason Start Time Stop Time Status Last Admin Dose Admin Acetaminophen (Tylenol) 650 mg Q4H PRN ORAL T>100.5 03/31/17 14:30 04/30/17 14:29 03/31/17 19:51 Al Hydroxide/Mg Hydroxide (Mylanta II) 30 ml Q6H PRN ORAL dyspepsia 03/31/17 14:30 04/30/17 14:29 Cyclobenzaprine HCl (Flexeril) 10 mg THREE TIMES A DAY ORAL 04/01/17 15:00 05/01/17 14:59 04/02/17 12:27 Dextrose (Dextrose 50%) STAT PRN IV Hypoglycemia 03/31/17 14:30 04/30/17 14:29 Heparin Sodium (Porcine) (Heparin 5000 units/ml) 5,000 units EVERY 12 HOURS SUBQ 03/31/17 21:00 04/30/17 20:59 04/02/17 09:18 Ibuprofen (Motrin) 800 mg TIDPRN PRN ORAL Mild Pain (Pain Scale 1-3) 04/01/17 14:15 05/01/17 14:14 Lorazepam (Ativan 2mg/ml 1ml) 0.5 mg Q4H PRN IV For Anxiety 03/31/17 14:30 04/07/17 14:29 Morphine Sulfate (Morphine Sulfate) 1 mg Q4H PRN IVP PAIN 4-10 03/31/17 14:30 04/07/17 14:29 Ondansetron HCl (Zofran) 4 mg Q6H PRN IVP Nausea & Vomiting 03/31/17 14:30 04/30/17 14:29 Polyethylene Glycol (Miralax) 17 gm HSPRN PRN ORAL Constipation 03/31/17 21:00 04/30/17 20:59 Tramadol HCl (Ultram) 50 mg Q6H PRN ORAL Severe Breakthru Pain (>7) 04/01/17 14:30 04/08/17 14:29 Zolpidem Tartrate (Ambien) 5 mg HSPRN PRN ORAL Insomnia 03/31/17 21:00 04/30/17 20:59 ELIZABETH PRITCHARD April 02, 2017 15:04
[2017-04-02 16:00] VITALS: BP 118/75
--- NOTE | 2017-04-02 17:02 | Cardiology Report ---
APPROVED REPORT EKG Measurement Heart [id number] Normal sinus rhythm Normal ECG
--- NOTE | 2017-04-03 15:59 | Discharge Summary ---
Discharge Summary Hospital Course Date of Admission March 31, 2017 at 14:05 Date of Discharge April 02, 2017 at 17:10 Admitting Diagnosis R leg pain, unable to ambulate HPI Pinky Clark is a 61 year old female who was admitted on March 31, 2017 at 14: 05 for Right Leg Pain-Unable To Ambulate Hospital Course [id number] Discharge Discharge Disposition Patient was discharged to Home (01) Discharge Diagnoses: Jade Rodriguez NP Apr 03, 2017 15:59
--- NOTE | 2017-04-04 01:00 | Discharge Summary 2 SIG ---
DATE OF ADMISSION: 03/31/2017 DATE OF DISCHARGE: 04/02/2017 CONSULTANTS: Omari Delacruz M.D. BRIEF HOSPITAL COURSE: The patient is a 61-year-old female, who presented to ED after a fall. The patient fell off a chair while at work and fell on her right side and hit her head. There was no loss of consciousness. Pain was severe that she was unable to ambulate. She was brought by EMS to the hospital secondary to pain in the medial thigh and radiating to pelvis and leg. On evaluation at ED, knee x-ray showed negative for fracture. Hip and pelvic x-ray showed no malalignment. Head CT showed no mass effect, edema, or acute bleed. She was seen by Dr. Delacruz. The patient was complaining of slight tenderness on the left occipital region with no pain on both lower extremities unless she is moving the leg or attempting to stand up. With movement, she develops severe pain to the inner thigh and groin region and also anterior thigh and just behind the right knee. When trying to get up, pain radiates to the right lower back region, pain and discomfort is in the right thigh. There was no numbness or tingling sensation. No headache. No dizziness. No visual or hearing abnormalities. The patient was assessed to have a blunt head trauma and a musculoligamentous sprain in the right lower extremity secondary to mechanical fall. She was given Motrin and Flexeril b.i.d. CAT scan of the spine showed no acute bony trauma with mild degenerative changes. Venous duplex of lower extremity was negative for DVT. She was was given pain management and underwent physical therapy and occupational therapy. She was eventually discharged home. Advised to follow up with PMD as outpatient. FINAL DIAGNOSES: 1. Fall with blunt head trauma. 2. Inability to ambulate secondary to musculoligamentous sprain in the right lower extremity secondary to fall. 3. Hypertension. 4. Skin rash. López Spain M.D. I have been assigned to dictate discharge summary on this account and I was not involved in the patient's management. Jade Rodriguez N.P. DR: STEVEN JOB#: [id number] CC: LUIS FERNANDO
== END 2017-04-02 17:10 | disposition home or self-care (01) | DRG 563 ==
LOC: EDBD 10:14 → EMR 10:55 → EDBEDREQ 12:44 → 4E 14:05
DX: S86.911A Strain of unspecified muscle(s) and tendon(s) at lower leg level, right leg, initial encounter (principal); S09.90XA Unspecified injury of head, initial encounter; W17.89XA Other fall from one level to another, initial encounter; Y92.59 Other trade areas as the place of occurrence of the external cause; Y99.0 Civilian activity done for income or pay; I10 Essential (primary) hypertension; R21 Rash and other nonspecific skin eruption; R26.2 Difficulty in walking, not elsewhere classified; M54.9 Dorsalgia, unspecified
CPT/HCPCS: 36415; 70450; 71010; 72131; 72170; 80053; 80061; 81003; 82550; 83880; 84443; 84484; 85007; 85025; 85610; 85730; 93005; 93970; J2405